=== PATIENT | female | born 1985 | race Caucasian/White ===

== ENCOUNTER → 2017-01-16 | Outpatient (CLI) | payer OTHER ==
--- NOTE | 2017-01-17 06:10 | REP ---
ULTRASOUND LEFT BREAST: Patient states a palpable abnormality that was present in the lateral left breast is no longer palpable. Real-time sonographic evaluation of the entire left breast is performed to evaluate the underlying breast implant. There is no evidence sonographically of extracapsular rupture. No cystic or solid nodules are seen. Only dense fibroglandular tissue is seen laterally at the site of the reported palpable abnormality. IMPRESSION: ACR 2 benign. No suspicious abnormality is identified particularly in the lateral aspect of the left breast. Clinical correlation and followup recommended. Signed by Lio Lara MD 01/17/2017 04:53 P
== END ==
LOC: M RAD 15:47
PROVIDERS: ATTEND Internal Medicine
DX: N64.4 Mastodynia (principal); Z98.82 Breast implant status

== ENCOUNTER → 2018-01-22 | Outpatient (REF) | payer OTHER | LOC: M SFHCLERA 20:39 | DX: R53.81 Other malaise (principal) ==